=== PATIENT | male | born 1945 | race Caucasian/White ===

== ENCOUNTER 2016-10-29 18:42 | Emergency (ER) | payer OTHER ==
[~2016-10-29] VITALS: Ht 170.1 cm; Wt 72.6 kg
[~2016-10-29 18:42] MED LIST: MOTRIN600 MG PO; TRAMADOL HCL50 MG PO
[2016-10-29] MEDS ORDERED: TRAMADOL HCL50 MG PO (18:51)
[2016-10-29] MEDS ORDERED: NAPROSYN500 MG PO (19:47)
== END 2016-10-29 19:49 | disposition home or self-care (01) ==
LOC: ED 18:42
DX: S20.212A Contusion of left front wall of thorax, initial encounter (principal); W10.9XXA Fall (on) (from) unspecified stairs and steps, initial encounter; Y93.89 Activity, other specified; Y92.9 Unspecified place or not applicable; Y99.9 Unspecified external cause status

== ENCOUNTER 2017-09-10 05:56 | Inpatient (IN) | payer OTHER, MEDICARE ==
[2017-09-10] VITALS (10 sets, daily range): BP systolic 118–137; BP diastolic 76–88
[~2017-09-10] VITALS: Ht 170.1 cm; Wt 76.3 kg
[~2017-09-10 05:56] MED LIST changes: +NAPROSYN500 MG PO
[2017-09-10 06:31] LABS: BASO # 0.1 10*3/uL (0.0-0.1); BASO % 0.7 % (0.0-1.0); EOS # 0.5 10*3/uL (0.0-0.4); EOS % 5.4 % (1.0-4.0); HEMATOCRIT 40.5 % (42.0-52.0); HEMOGLOBIN 14.4 g/dl (14.0-18.0); LYMPH # 2.3 10*3/uL (1.3-4.4); LYMPH % 27.9 % (27.0-41.0); MEAN CELL VOLUME 98.1 fl (80.0-94.0); MEAN CORPUSCULAR HGB 34.9 pg (27.0-31.0); MEAN CORPUSCULAR HGB CONC 35.6 g/dl (33.0-37.0); MONO # 0.7 10*3/uL (0.1-1.0); MONO % 8.2 % (3.0-9.0); NEUT # 4.8 10*3/uL (2.3-7.9); NEUT % 57.3 % (47.0-73.0); PLATELET COUNT AUTOMATED 198 10*3/uL (130-400); RED BLOOD COUNT 4.13 10*6/uL (4.50-5.90); RED CELL DISTRI WIDTH 11.9 % (0-14.5); WHITE BLOOD COUNT 8.3 10*3/uL (4.8-10.8)
[2017-09-10 06:41] LABS: BILIRUBIN NEGATIVE (NEGATIVE); BLOOD 2+ (NEGATIVE); CLARITY CLOUDY (CLEAR); COLOR YELLOW (YELLOW); GLUCOSE NEGATIVE (NEGATIVE); KETONE NEGATIVE (NEGATIVE); LEUKO ESTERASE NEGATIVE (NEGATIVE); NITRITE NEGATIVE (NEGATIVE); PH 5.5 (5.0-9.0); UROBILINOGEN 0.2 E.U./dl (0.2-1.0)
[2017-09-10 06:45] LABS: ACT PARTIAL THROMBO TIME 22.3 SECONDS (20.8-31.5)
[2017-09-10 06:48] LABS: URINE AMPHETAMINES < 1000 (1000ng/ml); URINE BARBITURATES < 200 (200ng/ml); URINE BENZODIAZEPINES < 200 (200ng/ml); URINE CANNABINOIDS (THC) > 50 (50ng/ml); URINE COCAINE < 300 (300ng/ml); URINE METHADONE < 300 (300ng/ml); URINE OPIATES < 300 (300ng/ml)
[2017-09-10 06:48] LABS: ALBUMIN 3.8 gm/dl (3.1-4.5); ALKALINE PHOSPHATASE 65 U/L (45-117); BUN 15 mg/dl (7-24); CHLORIDE 101 mmol/L (98-107); CREATININE 1.07 mg/dL (0.70-1.30); POTASSIUM 3.7 mmol/L (3.5-5.1); SGOT/AST 16 IU/L (3-35); SGPT/ALT 23 U/L (12-78); SODIUM 135 mmol/L (136-145); TOTAL PROTEIN 7.5 gm/dL (6.4-8.2)
[2017-09-10 06:49] LABS: TROPONIN I < 0.015 ng/ml (<0.045)
[2017-09-10 06:49] LABS: URINE PHENCYCLIDINE < 25 (25ng/ml)
[2017-09-10 06:58] LABS: RBC 31-40 rbc/hpf (0-2)
[2017-09-10 07:02] LABS: BACTERIA 1+; EPITHELIAL CELLS 30-40
[2017-09-10] MEDS ORDERED: IBU800 MG PO (08:30)
[2017-09-10] MEDS ORDERED: Lopressor25 MG PO (08:31)
[2017-09-11] VITALS: BP 104/61
[2017-09-11 02:00] VITALS: BP 104/51
[2017-09-11 07:23] LABS: BASO % 0.4 % (0.0-1.0); EOS # 0.1 10*3/uL (0.0-0.4); EOS % 1.5 % (1.0-4.0); HEMATOCRIT 38.5 % (42.0-52.0); HEMOGLOBIN 13.5 g/dl (14.0-18.0); LYMPH # 1.4 10*3/uL (1.3-4.4); LYMPH % 18.2 % (27.0-41.0); MEAN CELL VOLUME 99.5 fl (80.0-94.0); MEAN CORPUSCULAR HGB 34.9 pg (27.0-31.0); MEAN CORPUSCULAR HGB CONC 35.1 g/dl (33.0-37.0); MONO # 0.8 10*3/uL (0.1-1.0); MONO % 10.3 % (3.0-9.0); NEUT # 5.2 10*3/uL (2.3-7.9); NEUT % 69.2 % (47.0-73.0); PLATELET COUNT AUTOMATED 186 10*3/uL (130-400); RED BLOOD COUNT 3.87 10*6/uL (4.50-5.90); RED CELL DISTRI WIDTH 11.9 % (0-14.5); WHITE BLOOD COUNT 7.5 10*3/uL (4.8-10.8)
[2017-09-11 07:29] LABS: ACT PARTIAL THROMBO TIME 22.7 SECONDS (20.8-31.5)
[2017-09-11 07:34] LABS: ALBUMIN 3.9 gm/dl (3.1-4.5); BUN 10 mg/dl (7-24); CHLORIDE 106 mmol/L (98-107); CREATININE 0.92 mg/dL (0.70-1.30); POTASSIUM 3.8 mmol/L (3.5-5.1); SGOT/AST 20 IU/L (3-35); SODIUM 139 mmol/L (136-145)
[2017-09-11 07:42] LABS: ALKALINE PHOSPHATASE 60 U/L (45-117); CHOLESTEROL 177 mg/dL (<200); HDL CHOLESTEROL 38 mg/dl (40-60); LDL CHOLESTEROL 126 mg/dL (9-159); PHOSPHOROUS 2.7 mg/dL (2.5-4.9); SGPT/ALT 19 U/L (12-78); TOTAL PROTEIN 7.2 gm/dL (6.4-8.2); TRIGLYCERIDES 66 mg/dl (<150); VLDL CHOLESTEROL 13 mg/dL (6-40)
[2017-09-11 08:00] VITALS: BP 118/66
== END 2017-09-11 13:26 | disposition home or self-care (01) | DRG 100 ==
LOC: ED 05:56 → EDHOLD 08:03 → 4E 08:03 → ICCU 10:04 → 4E 18:28
PROVIDERS: Hospitalist; Student in an Organized Health Care Education/Training Program
DX: R56.9 Unspecified convulsions (principal); G93.41 Metabolic encephalopathy; E87.2 Acidosis; E83.41 Hypermagnesemia; E83.51 Hypocalcemia; E87.1 Hypo-osmolality and hyponatremia; F12.10 Cannabis abuse, uncomplicated; K21.9 Gastro-esophageal reflux disease without esophagitis; R73.9 Hyperglycemia, unspecified; M54.30 Sciatica, unspecified side; R41.0 Disorientation, unspecified; T14.8XXA Other injury of unspecified body region, initial encounter; X58.XXXA Exposure to other specified factors, initial encounter; Y93.89 Activity, other specified; Y92.89 Other specified places as the place of occurrence of the external cause; Y99.8 Other external cause status

== ENCOUNTER 2017-10-22 08:52 | Inpatient (IN) | payer OTHER ==
[~2017-10-22] VITALS: Ht 175.2 cm; Wt 75.4 kg
[2017-10-22 08:52] VITALS: BP 135/80
[~2017-10-22 08:52] MED LIST changes: +IBU800 MG PO; +Lopressor25 MG PO
[2017-10-22 10:40] VITALS: BP 150/80; BP 150/809
[2017-10-22] MEDS ORDERED: PREVACID15 M2 PO (11:03)
[2017-10-22 11:15] VITALS: BP 116/80
[2017-10-22] MEDS ORDERED: PREVACID15 M1 PO (11:42)
[2017-10-22 16:00] VITALS: BP 103/69
[2017-10-22 20:00] VITALS: BP 123/82
[2017-10-23] VITALS: BP 125/76
[2017-10-23 06:48] LABS: BASO % 0.3 % (0.0-1.0); EOS # 0.2 10*3/uL (0.0-0.4); EOS % 2.6 % (1.0-4.0); HEMATOCRIT 37.2 % (42.0-52.0); HEMOGLOBIN 12.8 g/dl (14.0-18.0); LYMPH # 0.9 10*3/uL (1.3-4.4); LYMPH % 14.8 % (27.0-41.0); MEAN CELL VOLUME 102.2 fl (80.0-94.0); MEAN CORPUSCULAR HGB 35.2 pg (27.0-31.0); MEAN CORPUSCULAR HGB CONC 34.4 g/dl (33.0-37.0); MEAN PLATELET VOLUME 10.1 fl (9.6-12.3); MONO # 0.7 10*3/uL (0.1-1.0); MONO % 10.8 % (3.0-9.0); NEUT # 4.4 10*3/uL (2.3-7.9); NEUT % 71.3 % (47.0-73.0); PLATELET COUNT AUTOMATED 176 10*3/uL (130-400); RED BLOOD COUNT 3.64 10*6/uL (4.50-5.90); RED CELL DISTRI WIDTH 12.5 % (0-14.5); WHITE BLOOD COUNT 6.2 10*3/uL (4.8-10.8)
[2017-10-23 07:00] LABS: BUN 14 mg/dl (7-24); CHLORIDE 105 mmol/L (98-107); CHOLESTEROL 160 mg/dL (<200); CREATININE 0.83 mg/dL (0.70-1.30); HDL CHOLESTEROL 43 mg/dl (40-60); LDL CHOLESTEROL 107 mg/dL (9-159); PHOSPHOROUS 2.6 mg/dL (2.5-4.9); SODIUM 138 mmol/L (136-145); TRIGLYCERIDES 48 mg/dl (<150); VLDL CHOLESTEROL 10 mg/dL (6-40)
[2017-10-23 08:00] VITALS: BP 121/75
[2017-10-23] MEDS ORDERED: PERCOCET 7.5-31 EACH PO (13:17)
== END 2017-10-23 14:23 | disposition home or self-care (01) | DRG 605 ==
LOC: ED 08:52 → EDHOLD 11:12 → 5E 11:12
PROVIDERS: Internal Medicine
DX: S20.211A Contusion of right front wall of thorax, initial encounter (principal); S27.0XXA Traumatic pneumothorax, initial encounter; D53.9 Nutritional anemia, unspecified; E83.41 Hypermagnesemia; E83.51 Hypocalcemia; R00.1 Bradycardia, unspecified; D72.810 Lymphocytopenia; F12.10 Cannabis abuse, uncomplicated; K21.9 Gastro-esophageal reflux disease without esophagitis; W19.XXXA Unspecified fall, initial encounter; Y93.89 Activity, other specified; Y92.89 Other specified places as the place of occurrence of the external cause; Y99.8 Other external cause status; Z80.9 Family history of malignant neoplasm, unspecified

== ENCOUNTER 2017-10-28 16:33 | Emergency (ER) | payer OTHER ==
[~2017-10-28] VITALS: Wt 63.5 kg
[~2017-10-28 16:33] MED LIST changes: -CHLORZOXAZONE500 M2 PO
[2017-10-28] MEDS ORDERED: NAPROSYN500 MG PO (17:44)
[2017-10-28] MEDS ORDERED: CHLORZOXAZONE500 M2 PO (17:44)
== END 2017-10-28 17:48 | disposition home or self-care (01) ==
LOC: ED 16:33
DX: S20.211D Contusion of right front wall of thorax, subsequent encounter (principal); R03.0 Elevated blood-pressure reading, without diagnosis of hypertension; K21.9 Gastro-esophageal reflux disease without esophagitis; Z79.899 Other long term (current) drug therapy; W19.XXXD Unspecified fall, subsequent encounter

== ENCOUNTER → 2017-10-28 | Outpatient (CLI) | payer OTHER ==
[~2017-10-28] MED LIST changes: +CHLORZOXAZONE500 M2 PO; +PERCOCET 7.5-31 EACH PO; +PREVACID15 M1 PO; +PREVACID15 M2 PO
== END | disposition home or self-care (01) ==
LOC: RAD 14:59
DX: J93.9 Pneumothorax, unspecified (principal)

== ENCOUNTER 2018-01-27 17:04 | Emergency (ER) | payer OTHER ==
[~2018-01-27] VITALS: Wt 74.8 kg
--- NOTE | ~2018-01-27 | EKG ---
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
[~2018-01-27 17:04] MED LIST changes: +CHLORZOXAZONE500 M2 PO
[2018-01-27 17:48] LABS: BASO # 0.1 10*3/uL (0.0-0.1); BASO % 0.5 % (0.0-1.0); EOS # 0.3 10*3/uL (0.0-0.4); HEMATOCRIT 39.6 % (42.0-52.0); HEMOGLOBIN 13.6 g/dl (14.0-18.0); LYMPH # 2.5 10*3/uL (1.3-4.4); MEAN CELL VOLUME 99.5 fl (80.0-94.0); MEAN CORPUSCULAR HGB 34.2 pg (27.0-31.0); MEAN CORPUSCULAR HGB CONC 34.3 g/dl (33.0-37.0); MEAN PLATELET VOLUME 9.8 fl (9.6-12.3); MONO % 7.4 % (3.0-9.0); NEUT # 9.3 10*3/uL (2.3-7.9); NEUT % 70.6 % (47.0-73.0); PLATELET COUNT AUTOMATED 224 10*3/uL (130-400); RED BLOOD COUNT 3.98 10*6/uL (4.50-5.90); RED CELL DISTRI WIDTH 12.8 % (0-14.5); WHITE BLOOD COUNT 13.2 10*3/uL (4.8-10.8)
[2018-01-27 18:03] LABS: ALBUMIN 3.9 gm/dl (3.1-4.5); ALKALINE PHOSPHATASE 65 U/L (45-117); BUN 18 mg/dl (7-24); CHLORIDE 105 mmol/L (98-107); CREATININE 1.12 mg/dL (0.70-1.30); POTASSIUM 3.9 mmol/L (3.5-5.1); SGOT/AST 16 IU/L (3-35); SGPT/ALT 17 U/L (12-78); SODIUM 137 mmol/L (136-145); TOTAL PROTEIN 7.5 gm/dL (6.4-8.2)
[2018-01-27 22:24] LABS: BILIRUBIN 2+ (NEGATIVE); BLOOD 1+ (NEGATIVE); CLARITY SL CLOUDY (CLEAR); COLOR YELLOW (YELLOW); GLUCOSE NEGATIVE (NEGATIVE); KETONE NEGATIVE (NEGATIVE); LEUKO ESTERASE NEGATIVE (NEGATIVE); NITRITE NEGATIVE (NEGATIVE); PH 5.5 (5.0-9.0); SPECIFIC GRAVITY >= 1.030 (1.005-1.030); UROBILINOGEN 0.2 E.U./dl (0.2-1.0)
[2018-01-27 22:34] LABS: URINE AMPHETAMINES < 1000 (1000ng/ml); URINE BARBITURATES < 200 (200ng/ml); URINE BENZODIAZEPINES < 200 (200ng/ml); URINE CANNABINOIDS (THC) > 50 (50ng/ml); URINE COCAINE < 300 (300ng/ml); URINE METHADONE < 300 (300ng/ml); URINE OPIATES < 300 (300ng/ml)
[2018-01-27 22:35] LABS: URINE PHENCYCLIDINE < 25 (25ng/ml)
[2018-01-27 22:46] LABS: ACETAMINOPHEN (TYLENOL) < 2.0 ug/ml (10-30); ETHYL ALCOHOL < 3.0 mg/dl (<3)
[2018-01-27 22:54] LABS: MUCOUS TRACE; WBC 0-2 wbc/hpf (0-5)
== END 2018-01-28 08:31 | disposition short-term general hospital (02) ==
LOC: ED 17:04
PROVIDERS: Emergency Medicine; Student in an Organized Health Care Education/Training Program
DX: S42.212A Unspecified displaced fracture of surgical neck of left humerus, initial encounter for closed fracture (principal); F17.200 Nicotine dependence, unspecified, uncomplicated; F12.90 Cannabis use, unspecified, uncomplicated; K21.9 Gastro-esophageal reflux disease without esophagitis; R56.9 Unspecified convulsions; Z79.899 Other long term (current) drug therapy; X58.XXXA Exposure to other specified factors, initial encounter; Y93.89 Activity, other specified; Y92.89 Other specified places as the place of occurrence of the external cause; Y99.9 Unspecified external cause status

== ENCOUNTER 2024-05-09 10:01 | Emergency (ER) | payer OTHER ==
[~2024-05-09] VITALS: Ht 165.1 cm; Wt 74.8 kg
[2024-05-09] MEDS ORDERED: PREDNISONE20 M1 PO (10:32)
[2024-05-09] MEDS ORDERED: VALTREX1000 MG PO (10:32)
== END 2024-05-09 10:51 | disposition home or self-care (01) ==
LOC: ED 10:01
DX: B02.9 Zoster without complications (principal); I10 Essential (primary) hypertension; E78.5 Hyperlipidemia, unspecified; K21.9 Gastro-esophageal reflux disease without esophagitis; F12.90 Cannabis use, unspecified, uncomplicated; Z98.890 Other specified postprocedural states

== ENCOUNTER 2024-10-19 11:51 | Emergency (ER) | payer OTHER ==
[~2024-10-19] VITALS: Ht 170.1 cm; Wt 75.4 kg
[~2024-10-19 11:51] MED LIST changes: +PREDNISONE20 M1 PO; +VALTREX1000 MG PO
[2024-10-19] MEDS ORDERED: Acetaminophen/Hydrocodone 5 MG/325 MG TABLET PO ONE (15:25)
[2024-10-19] MEDS ORDERED: NAPROSYN500 MG PO (15:27)
[2024-10-19] MEDS ORDERED: HYDROCODONE-AC1 EAC1 PO (15:27)
== END 2024-10-19 15:31 | disposition home or self-care (01) ==
LOC: ED 11:51
DX: S22.080A Wedge compression fracture of T11-T12 vertebra, initial encounter for closed fracture (principal); M25.551 Pain in right hip; K21.9 Gastro-esophageal reflux disease without esophagitis; Z79.899 Other long term (current) drug therapy; W17.89XA Other fall from one level to another, initial encounter; Y93.89 Activity, other specified; Y92.89 Other specified places as the place of occurrence of the external cause; Y99.8 Other external cause status

== ENCOUNTER 2025-03-20 13:04 | Emergency (ER) | payer OTHER ==
[~2025-03-20] VITALS: Wt 79.8 kg
[~2025-03-20 13:04] MED LIST changes: +ARIPIPRAZOLE5 MG PO; +ASPIRIN ADULT L81 M2 PO; +ATORVASTATIN CA80 M1 PO; +B121000 MCG/1 IM; +HYDROCODONE-AC1 EAC1 PO; +KEPPRA500 MG PO; +Lovenox40 MG/0.4 PO; +MAGNESIUM400 M1 PO; +METOPROLOL SUCC25 M2 PO; +NAMENDA-5 PO; +PROTONIX40 MG PO; +RIVASTIGMINE TAR3 M1 PO
[2025-03-20] MEDS ORDERED: SODIUM CHLORIDE 0.9% 1,000 ML IV ONE (13:10)
[2025-03-20 13:27] LABS: BASO # 0.1 10*3/uL (0.0-0.1); BASO % 0.8 % (0.0-1.0); EOS # 0.3 10*3/uL (0.0-0.4); EOS % 4.2 % (1.0-4.0); MEAN CELL VOLUME 101.1 fl (80.0-94.0); MEAN CORPUSCULAR HGB 34.1 pg (27.0-31.0); MEAN PLATELET VOLUME 10.2 fl (9.6-12.3); MONO # 0.5 10*3/uL (0.1-1.0); MONO % 9.0 % (3.0-9.0); NEUT # 3.3 10*3/uL (2.3-7.9); NEUT % 54.8 % (47.0-73.0); NUCLEATED RED BLOOD CELL 0.0 % (0.0-0.0); NUCLEATED RED BLOOD CELL 0.0 10*3/uL (0.0-0.0); PLATELET COUNT AUTOMATED 197 10*3/uL (130-400); RED CELL DISTRI WIDTH 11.5 % (0-14.5)
[2025-03-20 13:47] LABS: BUN 11 mg/dl (9-23)
[2025-03-20] MEDS ORDERED: MAGNESIUM SULFATE 100 ML IV ONE (14:05)
== END 2025-03-20 15:31 | disposition home or self-care (01) ==
LOC: ED 13:04
PROVIDERS: Emergency Medicine
DX: R55 Syncope and collapse (principal); E83.42 Hypomagnesemia; E83.51 Hypocalcemia; R41.0 Disorientation, unspecified; F32.A Depression, unspecified; F41.9 Anxiety disorder, unspecified; I10 Essential (primary) hypertension; E78.5 Hyperlipidemia, unspecified; Z91.018 Allergy to other foods; Z79.899 Other long term (current) drug therapy; Z79.82 Long term (current) use of aspirin; Z98.890 Other specified postprocedural states